=== PATIENT | female | born 1935 | race Caucasian/White ===

== ENCOUNTER 2018-12-08 16:15 | Emergency (ER) | payer MEDICARE, OTHER ==
[2018-12-08 17:05] VITALS: BP 130/59
--- NOTE | 2018-12-08 17:28 | UC ---
Complaint Female HPI - HPI Summary HPI Summary: 83-year-old woman comes in with a chief complaint of increased urinary frequency. It's been going on for about a week. Is a congested often when she does she going to the small amount. She is concerned she has a UTI. She feels slightly ill no fevers recorded. Denies any abdominal pain. Reports normal bowel movements. No complaint of any flank pain. - History Of Current Complaint Chief Complaint: UCGU Stated Complaint: URINARY Time Seen by Provider: 12/08/18 17:17 Hx Last Menstrual Period: n /a Pain Intensity: 0 - Allergies/Home Medications Allergies/Adverse Reactions: Allergies Allergy/AdvReac Type Severity Reaction Status Date / Time No Known Allergies Allergy Verified 12/08/18 16:56 Home Medications: Home Medications Ascorbic Acid TAB* [Vitamin C TAB*] 500 mg PO DAILY 12/08/18 [History Confirmed 12/08/18] Aspirin EC TAB* [Ecotrin EC Low Dose 81 MG*] 81 mg PO DAILY 12/08/18 [History Confirmed 12/08/18] Biotin/Calcium Carbonate [Biotin 800 Mcg Tablet] 800 mcg PO DAILY 12/08/18 [ History Confirmed 12/08/18] Calcium Carbonate/Vitamin D3 [Calcium 600/Vitamin D3] 1 tab PO DAILY 12/08/18 [ History Confirmed 12/08/18] Cyanocobalamin TAB* [Vitamin B12 TAB*] 1,000 mcg PO DAILY 12/08/18 [History Confirmed 12/08/18] Enalapril TAB* [Vasotec TAB*] 20 mg PO DAILY 12/08/18 [History Confirmed ] Escitalopram Oxalate [Lexapro 10 mg] 10 mg PO DAILY 12/08/18 [History Confirmed 12/08/18] Furosemide TAB* [Lasix TAB*] 20 mg PO DAILY 12/08/18 [History Confirmed 12/08/18 ] Gabapentin TAB(NF) [Neurontin 600 mg TAB(NF)] 600 mg PO TID 12/08/18 [History Confirmed 12/08/18] [place]-3 Fatty Acids/Fish Oil [[place] 3] 1 cap PO DAILY 12/08/18 [History Confirmed 12/08/18] Omeprazole CAP (NF) [Prilosec CAP* 20 MG] 20 mg PO DAILY 12/08/18 [History Confirmed 12/08/18] Oxybutynin Chloride [Oxybutynin Chloride ER] 5 mg PO DAILY 12/08/18 [History Confirmed 12/08/18] Simvastatin TAB(NF) [Zocor(NF)] 20 mg PO DAILY 12/08/18 [History Confirmed 12/08] Sitagliptin (NF) [Januvia (NF)] 50 mg PO DAILY 12/08/18 [History Confirmed 12/08] Vitamin THERAPEUTIC TAB* [Theragran TAB*] 1 tab PO DAILY 12/08/18 [History Confirmed 12/08/18] PMH/Surg Hx/FS Hx/Imm Hx Previously Healthy: Yes Endocrine History: Diabetes, Dyslipidemia Cardiovascular History: Hypertension, Congestive Heart Failure - Surgical History Surgical History: None - Family History Known Family History: Positive: Non-Contributory - Social History Alcohol Use: None Substance Use Type: None Smoking Status (MU): Never Smoked Tobacco Review of Systems All Other Systems Reviewed And Are Negative: Yes Constitutional: Positive: Negative Skin: Positive: Negative Eyes: Positive: Negative ENT: Positive: Negative Respiratory: Positive: Negative Cardiovascular: Positive: Negative Gastrointestinal: Negative: Abdominal Pain Genitourinary: Positive: Frequency, Urgency Motor: Positive: Negative Neurovascular: Positive: Negative Musculoskeletal: Positive: Negative Neurological: Positive: Negative Psychological: Positive: Negative Is Patient Immunocompromised?: No Physical Exam Triage Information Reviewed: Yes Appearance: Well-Appearing, No Pain Distress, Well-Nourished Vital Signs: Initial Vital Signs Temp 97.8 F 12/08/18 16:54 Pulse 82 12/08/18 16:54 Resp 18 12/08/18 16:54 BP 130/59 12/08/18 16:54 Pulse Ox 92 12/08/18 16:54 Vital Signs Reviewed: Yes Eye Exam: Normal Eyes: Positive: Conjunctiva Clear Neck exam: Normal Neck: Positive: Supple Respiratory: Positive: Lungs clear, Normal breath sounds, No respiratory distress Cardiovascular: Positive: RRR Abdomen Description: Positive: Nontender, Soft, CVA Tenderness (R) - MILD, CVA Tenderness (L) - MILD. Negative: Distended, Guarding Bowel Sounds: Positive: Present Musculoskeletal Exam: Normal Musculoskeletal: Positive: Strength Intact, ROM Intact Neurological Exam: Normal Neurological: Positive: Alert, Muscle Tone Normal Psychological Exam: Normal Psychological: Positive: Age Appropriate Behavior Skin Exam: Normal Complaint Female Dx - Course Course Of Treatment: I discussed the urine results with the patient. The urinalysis does show some leukocytes. Patient's symptoms are most consistent with UTI. Therefore we'll treat with an antibiotic and send the urine for culture. Discussed all this with the patient to include that if she got worse with fevers felt ill had abdominal pain she needs to get reevaluated right away. - Differential Dx/Diagnosis Provider Diagnosis: UTI (urinary tract infection), Urinary urgency, Urinary frequency Discharge - Sign-Out/Discharge Documenting (check all that apply): Patient Departure All imaging exams completed and their final reports reviewed: No Studies - Discharge Plan Condition: Stable Disposition: HOME Prescriptions: Sulfamethox/Trimethoprim DS* [Bactrim DS 800/160 TAB*] 1 tab PO BID #14 tab Patient Education Materials: Dysuria (ED), Urinary Tract Infection in Older Adults (ED) Referrals: Santa Hough MD [Primary Care Provider] - Additional Instructions: FOLLOW UP WITH YOUR DOCTOR. GO TO THE EMERGENCY DEPARTMENT FOR ANY WORSENING OF YOUR CONDITION; PAIN, FEVER , YOU FEEL ILL OR QUESTIONS OR CONCERNS. - Billing Disposition and Condition Condition: STABLE Disposition: Home
== END 2018-12-08 17:35 | disposition home or self-care (01) ==
LOC: UCCORT 16:15
DX: N39.0 Urinary tract infection, site not specified (principal); R39.15 Urgency of urination; R35.0 Frequency of micturition; E11.9 Type 2 diabetes mellitus without complications; E78.5 Hyperlipidemia, unspecified; I11.0 Hypertensive heart disease with heart failure; I50.9 Heart failure, unspecified; Z79.84 Long term (current) use of oral hypoglycemic drugs; Z79.899 Other long term (current) drug therapy; Z79.82 Long term (current) use of aspirin
CPT/HCPCS: 81003; 87077; 87086; 87186; 99202; G0463